=== PATIENT | female | born 1955 ===

== ENCOUNTER 2023-10-05 10:35 | Day surgery (SDC) | payer OTHER ==
[2023-09-28 09:33] LABS: HEMATOCRIT 44.7 % (36.0-45.00); HEMOGLOBIN 15.1 g/dL (12.0-15.00); MEAN CELL VOLUME 93.5 fL (80.00-100.00); MEAN CORPUSCULAR HEMOGLOBIN 31.5 pg (27.00-32.0); MEAN CORPUSCULAR HGB CONC 33.7 g/dl (32.0-36.0); PLATELET COUNT 269 K/uL (150-450); RED BLOOD COUNT 4.78 M/uL (4.00-6.00); RED CELL DISTRIBUTION WIDTH 13.4 % (11.5-14.5)
[2023-09-28 09:39] LABS: PH,URINE 5.5 (5.0-8.0); URINE APPEARANCE Cloudy; URINE BILIRRUBIN Negative (NEGATIVE); URINE BLOOD Negative; URINE COLOR Yellow; URINE GLUCOSE Negative (NEGATIVE); URINE LEUKOCYTE Large; URINE NITRATE Negative; URINE PROTEIN Negative (NEGATIVE); URINE UROBILINOGEN 0.2 E.U./dl
[2023-09-28 09:44] LABS: URINE BACTERIA 259.5 uL (0.0-1933); URINE EPITHELIAL CELLS 15.7 uL (0.0-38.8); URINE RBC 2.7 uL (0.0-20.8); URINE WBC 1147.3 uL (0.0-23.2)
[2023-09-28 09:55] LABS: INR 0.99; PARTIAL THROMBOPLASTIN TIME 26.2 SECONDS (22.0-34.0); PROTHROMBIN TIME 10.4 SECONDS (9.0-11.5)
[2023-09-28 10:15] LABS: ALBUMIN 3.9 gm/dL (3.4-5.0); BILIRUBIN TOTAL 0.43 mg/dL (0.3-1.2); CALCIUM 9.6 mg/dL (8.5-10.1); CREATININE SERUM 0.76 mg/dL (0.55-1.02); GFR 76.14; GLOBULINA 3.4 G/DL (2.4-3.5); POTASSIUM 5.24 mEq/L (3.5-5.1); TOTAL PROTEIN 7.3 gm/dL (6.4-8.2)
[~2023-10-05 10:35] MED LIST: ANASTROZOLE1 MG PO; MUCINEX600 MG PO
[2023-10-05] MEDS ORDERED: POVIDONE-IODINE 118 ML BOTT TOP ONE ×2 (20:55→21:45)
[2023-10-05] MEDS ORDERED: RINGERS SOLUTION,LACTATED 1,000 ML IV SCH (23:00)
== END 2023-10-06 04:30 | disposition home or self-care (01) ==
LOC: CIR.AMB 10:35
PROVIDERS: ATTEND Obstetrics & Gynecology
DX: N85.00 Endometrial hyperplasia, unspecified (principal); R93.89 Abnormal findings on diagnostic imaging of other specified body structures; Z88.1 Allergy status to other antibiotic agents; Z88.0 Allergy status to penicillin